=== PATIENT | female | born 1980 ===

== ENCOUNTER 2016-06-10 00:17 | Emergency (ER) | payer SELFPAY ==
[2016-06-10 00:18] VITALS: BMI 27.2
[2016-06-10 00:41] VITALS: BP 125/86; PULSE 76; RESP 20; TEMP 98; O2SAT 98
--- NOTE | 2016-06-10 01:13 | C.PDOC ---
History Of Present Illness 35 year old patient, with a past medical history of right sided neuropathy, presents to the ED complaining of intermittent pain from the right neck to the right shoulder and arm. Patient reports there is a tingling sensation. She is here with her son in the ED and decided to be evaluated as well. Patient denies any other complaints. Time Seen by Provider: 06/10/16 00:39 Chief Complaint (Nursing): Upper Extremity Problem/Injury History Per: Patient History/Exam Limitations: no limitations Onset/Duration Of Symptoms: Intermittent Episodes Current Symptoms Are (Timing): Still Present Quality: "Pain" Severity: Mild Pain Scale Rating Of: 3 Recent travel outside of the [place]: No Past Medical History Reviewed: Historical Data, Nursing Documentation, Vital Signs Vital Signs: Last Vital Signs Temp 98 F 06/10/16 00:32 Pulse 76 06/10/16 00:32 Resp 20 06/10/16 00:32 BP 125/86 06/10/16 00:32 Pulse Ox 98 06/10/16 03:07 - Medical History PMH: Anxiety, Back Problems, Depression, HTN Surgical History: Tonsillectomy, - [facility] Procedures BILAT TUBAL DIVISION NEC (01/13/14) LOW CERVICAL (01/13/14) Family History: States: Unknown Family Hx - Social History Hx Tobacco Use: No Hx Alcohol Use: No Hx Substance Use: No - Immunization History Hx Tetanus Toxoid Vaccination: No Hx Influenza Vaccination: No Hx Pneumococcal Vaccination: No Review Of Systems Except As Marked, All Systems Reviewed And Found Negative. Constitutional: Negative for: Fever Musculoskeletal: Positive for: Other (right neck to right upper extremity pain) Neurological: Positive for: Numbness. Negative for: Weakness Physical Exam - Physical Exam Appears: Non-toxic, No Acute Distress Skin: Warm, Dry Head: Atraumatic, Normacephalic Eye(s): bilateral: PERRL, EOMI Neck: Normal ROM, Paracervical Tenderness (right), Supple Chest: Symmetrical Cardiovascular: Rhythm Regular Respiratory: Normal Breath Sounds, No Rales, No Rhonchi, No Wheezing Extremity: Normal ROM, Tenderness (to the anterior aspect of the right shoulder) , Capillary Refill (<2 seconds), No Deformity, No Swelling, Other (normal pulses ; good strength; normal ROM of both upper extremities; normal motor) Neurological/Psych: Oriented x3, Normal Speech, Normal Cognition, Normal Motor, Normal Sensation Gait: Steady ED Course And Treatment O2 Sat by Pulse Oximetry: 98 (RA) Pulse Ox Interpretation: Normal Progress Note: Patient is resting comfortably, and is in no acute distress. Patient was instructed to follow up with physician/clinic in 1-2 days for further evaluation. Return if symptoms worsen. Disposition Counseled Patient/Family Regarding: Diagnosis, Need For Followup, Rx Given - Disposition Referrals: [facility] [Outside] Disposition: HOME/ ROUTINE Disposition Time: 01:12 Condition: STABLE Additional Instructions: Take meds as directed Follwo up with PMD in clinic Return to ER if worse Prescriptions: Ibuprofen [Motrin] 600 mg PO Q6H #30 tab Instructions: Peripheral Neuropathy (ED) - Clinical Impression Clinical Impression: Neuropathic pain - PA / LADLE HANDLER / Resident Statement MD/DO has reviewed & agrees with the documentation as recorded. - Scribe Statement The provider has reviewed the documentation as recorded by the Scribe Mary Mancuso All medical record entries made by the Scribe were at my direction and personally dictated by me. I have reviewed the chart and agree that the record accurately reflects my personal performance of the history, physical exam, medical decision making, and the department course for this patient. I have also personally directed, reviewed, and agree with the discharge instructions and disposition.
== END 2016-06-10 01:48 | disposition home or self-care (01) ==
LOC: C.ER 00:17
DX: G62.9 Polyneuropathy, unspecified (principal)

== ENCOUNTER 2016-11-12 20:51 | Emergency (ER) | payer SELFPAY ==
[2016-11-12 20:51] VITALS: BMI 27.2
[2016-11-12 21:05] VITALS: TEMP 98.5
--- NOTE | 2016-11-12 21:56 | C.PDOC ---
History Of Present Illness 36 y/o female, with PMHx of anxiety, presents to ED with c/o right sided headache since this morning. Patient describes headache as "sharp and electric" . Patient reports pain radiates down into her shoulder and that pain worsens with raising her arm. Patient also states pain radiates down right side of her back. She notes that the right side of her face became numb this afternoon, prompting visit. Denies fever, chills, nausea, vomiting, neck pain, visual changes, new weakness or numbness, or other associated symptoms. Time Seen by Provider: 11/12/16 21:09 Chief Complaint (Nursing): Headache History Per: Patient History/Exam Limitations: no limitations Onset/Duration Of Symptoms: Days Current Symptoms Are (Timing): Still Present Quality: Sharp, "Pain" Preceeding Symptoms: None Associated Symptoms: denies: Blurred Vision, Nausea, Vomiting, Extremity Weakness Recent travel outside of the [place]: No Past Medical History Reviewed: Historical Data, Nursing Documentation, Vital Signs Vital Signs: Last Vital Signs Temp 98.5 F 11/12/16 21:00 Pulse 94 H 11/12/16 21:00 Resp 16 11/12/16 21:00 BP 146/93 H 11/12/16 21:00 Pulse Ox 98 11/12/16 21:57 - Medical History PMH: Anxiety, Back Problems, Depression, HTN Surgical History: Tonsillectomy, - [facility] Procedures BILAT TUBAL DIVISION NEC (01/13/14) LOW CERVICAL (01/13/14) Family History: States: Unknown Family Hx - Social History Hx Tobacco Use: No Hx Alcohol Use: No Hx Substance Use: No - Immunization History Hx Tetanus Toxoid Vaccination: No Hx Influenza Vaccination: Yes Hx Pneumococcal Vaccination: No Review Of Systems Except As Marked, All Systems Reviewed And Found Negative. Constitutional: Negative for: Fever, Chills Cardiovascular: Negative for: Chest Pain Respiratory: Negative for: Shortness of Breath Neurological: Positive for: Headache. Negative for: Weakness, Numbness, Dizziness Physical Exam - Physical Exam Appears: Non-toxic, No Acute Distress Skin: Normal Color, Warm, Dry Head: Atraumatic, Normacephalic Eye(s): bilateral: Normal Inspection, PERRL, EOMI Oral Mucosa: Moist Neck: Normal ROM, No Midline Cervical Tenderness, No Paracervical Tenderness, Supple Chest: Symmetrical Cardiovascular: Rhythm Regular Respiratory: Normal Breath Sounds, No Rales, No Rhonchi, No Wheezing Gastrointestinal/Abdominal: Soft, No Tenderness, No Guarding, No Rebound Back: Normal Inspection Extremity: Normal ROM, Capillary Refill (< 2 sec.) Neurological/Psych: Oriented x3, Normal Speech, Normal Cognition, Normal Motor, Normal Sensation ED Course And Treatment - Laboratory Results Result Diagrams: 11/12/16 22:38 11/12/16 22:38 Lab Interpretation: No Acute Changes (mild elevation of LFTs) O2 Sat by Pulse Oximetry: 98 (RA) Pulse Ox Interpretation: Normal - CT Scan/US Head Other Rad Studies (CT/US): Read By Radiologist, Radiology Report Reviewed CT/US Interpretation: No acute intracranial hemorrhage or suspicious mass effect. (see report) Progress Note: CT Head and labs ordered. Review of prior records shows patient evaluated in this ER for similar complaints 2 years ago, with negative workup. Reevaluation Time: 23:38 Reassessment Condition: Improved (Patient is currently asymptomatic) Disposition Counseled Patient/Family Regarding: Studies Performed, Diagnosis, Need For Followup - Disposition Referrals: [facility] [Outside] Disposition: HOME/ ROUTINE Disposition Time: 23:39 Condition: IMPROVED Additional Instructions: Follow up with your doctor in the next several days. Discuss the possibility of having an MRI done as an outpatient. Instructions: Acute Headache (ED) Forms: [employer] (Urdu) - Clinical Impression Clinical Impression: Headache, Neuropathic pain - Scribe Statement The provider has reviewed the documentation as recorded by the Somibe SM Provider Attestation: All medical record entries made by the Walker were at my direction and personally dictated by me. I have reviewed the chart and agree that the record accurately reflects my personal performance of the history, physical exam, medical decision making, and the department course for this patient. I have also personally directed, reviewed, and agree with the discharge instructions and disposition.
[2016-11-12 22:12] LABS: RBC URINE 17 /hpf (0-3); URINE BILIRUBIN NEGATIVE (NEGATIVE); URINE BLOOD 3+ (NEGATIVE); URINE COLOR Yellow (YELLOW); URINE GLUCOSE (UA) NORMAL (Normal); URINE KETONE NEGATIVE (NEGATIVE); URINE LEUKOCYTE ESTERASE NEG Leu/uL (Negative); URINE PROTEIN NEGATIVE (NEGATIVE); URINE UROBILINOGEN NORMAL mg/dL (0.2-1.0); WBC URINE 2 /hpf (0-5)
--- NOTE | 2016-11-12 22:41 | CT ---
EXAM: CT Head Without Intravenous Contrast CLINICAL HISTORY: 36 years old, female; Pain; Headache; Headache not specified; Additional info: R/O bleed TECHNIQUE: Axial computed tomography images of the head/brain without intravenous contrast. All CT scans at this facility use one or more dose reduction techniques, viz.: automated exposure control; ma/kV adjustment per patient size (including targeted exams where dose is matched to indication; i.e. head); or iterative reconstruction technique. COMPARISON: MR - BRAIN WITHOUT CONTRAST 12/11/2014 1:15:23 PM FINDINGS: Brain: No acute intracranial hemorrhage. No significant white matter disease. No edema. Ventricles: No significant ventriculomegaly. Bones: No acute displaced fracture. Sinuses: Unremarkable as visualized. No acute sinusitis. Mastoid air cells: Unremarkable as visualized. No mastoid effusion. IMPRESSION: No acute intracranial hemorrhage, or suspicious mass effect.
[2016-11-12 22:42] LABS: BASO % 0.5 % (0.0-2.0); EOS # 0.1 K/uL (0.0-0.7); EOS % 0.8 % (0.0-4.0); HEMATOCRIT 38.7 % (34.0-47.0); LYMPH # 1.9 K/uL (1.0-4.3); LYMPH % 27.3 % (20.0-40.0); MEAN CELL VOLUME 88.6 fL (81.0-99.0); MEAN CORPUSCULAR HEMOGLOBIN 29.9 pg (27.0-31.0); MEAN CORPUSCULAR HGB CONC 33.8 g/dL (33.0-37.0); MEAN PLATELET VOLUME 9.3 fL (7.2-11.7); MONO # 0.6 K/uL (0.0-0.8); MONO % 8.1 % (0.0-10.0); RED CELL DISTRIBUTION WIDTH 13.5 % (11.5-14.5); WHITE BLOOD COUNT 6.9 K/uL (4.8-10.8)
[2016-11-12 22:48] LABS: CHLORIDE 105 mmol/L (98-107)
[2016-11-12 22:49] LABS: POTASSIUM 3.8 mmol/L (3.6-5.2); SODIUM 143 mmol/L (132-148)
[2016-11-12 22:51] LABS: ALB/GLOB RATIO 1.3 (1.0-2.1); ALKALINE PHOSPHATASE 137 U/L (38-126); ALT/SGPT 67 U/L (9-52); AST/SGOT 39 U/L (14-36); BILIRUBIN,TOTAL 0.4 mg/dL (0.2-1.3); CARBON DIOXIDE 27 mmol/L (22-30); GFR AFRICAN-AMERICAN > 60; TOTAL PROTEIN 7.4 g/dL (6.3-8.3)
[2016-11-12 22:52] LABS: BLOOD UREA NITROGEN 15 mg/dL (7-17); CALCIUM 8.8 mg/dl (8.6-10.4); GLUCOSE,RANDOM 81 mg/dL (65-105); MAGNESIUM 1.7 mg/dL (1.6-2.3)
[2016-11-13 00:16] VITALS: BP 128/81; PULSE 83; RESP 18; O2SAT 99
== END 2016-11-13 00:17 | disposition home or self-care (01) ==
LOC: C.ER 20:51
DX: R51 Headache (principal); M79.2 Neuralgia and neuritis, unspecified; I10 Essential (primary) hypertension; F41.9 Anxiety disorder, unspecified

== ENCOUNTER 2018-03-17 09:30 | Emergency (ER) | payer SELFPAY | END 2018-03-17 12:35 | disposition home or self-care (01) | LOC: C.ER 09:30 ==

== ENCOUNTER 2018-03-19 20:55 | Emergency (ER) | payer MEDICAID ==
[2018-03-19 20:55] VITALS: BMI 27.2
[2018-03-19 21:06] VITALS: BP 137/83; PULSE 66; RESP 20; TEMP 98; O2SAT 97
[2018-03-19 22:05] LABS: BASO % 0.3 % (0.0-2.0); EOS # 0.1 K/uL (0.0-0.7); LYMPH # 1.7 K/uL (1.0-4.3); MEAN CORPUSCULAR HEMOGLOBIN 29.3 pg (27.0-31.0); MEAN CORPUSCULAR HGB CONC 33.1 g/dL (33.0-37.0); MONO # 0.6 K/uL (0.0-0.8); MONO % 11.5 % (0.0-10.0); NEUT # 2.9 K/uL (1.8-7.0); NEUT % 55.2 % (50.0-75.0); RBC 4.79 Mil/uL (3.80-5.20); RED CELL DISTRIBUTION WIDTH 13.3 % (11.5-14.5); WHITE BLOOD COUNT 5.2 K/uL (4.8-10.8)
[2018-03-19 22:06] LABS: MEAN CELL VOLUME 88.4 fL (81.0-99.0)
[2018-03-19 22:23] LABS: ALB/GLOB RATIO 1.4 (1.0-2.1); ALBUMIN 4.6 g/dL (3.5-5.0); ALT/SGPT 110 U/L (9-52); AST/SGOT 96 U/L (14-36); BLOOD UREA NITROGEN 12 mg/dL (7-17); GFR NON-AFRICAN AMERICAN > 60
--- NOTE | 2018-03-19 23:27 | C.PDOC ---
History Of Present Illness 37 year old female presents to the ED c/o left upper back, left shoulder and left neck pain. Patient reports that today while rushing downstairs she became dizzy, like a spinning sensation, and fell 7/8 steps. Patient was seen in the ED on Thursday for evaluation of a syncopal episode, patient had lab work, EKG done all were normal with no gross abnormality. Patient denies syncope, headache, visual changes, LOC, neck pain, weakness, numbness, CP, SOB, nausea, vomit. Pt is no longer dizzy Time Seen by Provider: 03/19/18 21:11 Chief Complaint (Nursing): Back Pain History Per: Patient History/Exam Limitations: no limitations Onset/Duration Of Symptoms: Hrs Current Symptoms Are (Timing): Still Present Quality Of Discomfort: "Pain" Recent travel outside of the [place]: No Additional History Per: Patient Past Medical History Reviewed: Historical Data, Nursing Documentation, Vital Signs Vital Signs: Last Vital Signs Temp 98.0 F 03/19/18 20:58 Pulse 66 03/19/18 20:58 Resp 20 03/19/18 20:58 BP 137/83 03/19/18 20:58 Pulse Ox 97 03/19/18 20:58 - Medical History PMH: Anxiety, Back Problems, Depression, HTN Surgical History: Tonsillectomy, - [facility] Procedures BILAT TUBAL DIVISION NEC (01/13/14) LOW CERVICAL (01/13/14) Family History: States: Unknown Family Hx - Social History Hx Tobacco Use: No Hx Alcohol Use: No Hx Substance Use: No - Immunization History Hx Tetanus Toxoid Vaccination: No Hx Influenza Vaccination: Yes Hx Pneumococcal Vaccination: No Review Of Systems Constitutional: Negative for: Fever, Chills Eyes: Negative for: Vision Change Cardiovascular: Negative for: Chest Pain Respiratory: Negative for: Cough, Shortness of Breath Gastrointestinal: Negative for: Nausea, Vomiting, Diarrhea Musculoskeletal: Positive for: Neck Pain, Shoulder Pain Skin: Negative for: Rash Neurological: Positive for: Headache. Negative for: Weakness, Numbness, Dizziness Physical Exam - Physical Exam Appears: Non-toxic, No Acute Distress Skin: Normal Color, Warm, Dry Head: Atraumatic, Normacephalic Eye(s): bilateral: Normal Inspection, PERRL, EOMI Oral Mucosa: Moist Neck: Normal ROM, No Midline Cervical Tenderness, Paracervical Tenderness (left sided), Supple Chest: Symmetrical Cardiovascular: Rhythm Regular Respiratory: Normal Breath Sounds, No Rales, No Rhonchi, No Wheezing Gastrointestinal/Abdominal: Soft, No Tenderness, No Guarding, No Rebound Back: Other (left upper back tenderness) Extremity: Normal ROM (left wrist causes pain), Tenderness (left anterolateral shoulder, left wrist dorsal aspect), Capillary Refill (< 2 seconds), Swelling (left wrist dorsal aspect) Pulses: Left Radial: Normal, Right Radial: Normal Neurological/Psych: Oriented x3, Normal Speech, Normal Cognition Gait: Steady ED Course And Treatment - Laboratory Results Result Diagrams: 03/19/18 22:00 03/19/18 22:00 Lab Results: Total Bilirubin 0.5 mg/dL (0.2-1.3) 03/19/18 22:00 AST 96 U/L (14-36) H D 03/19/18 22:00 ALT 110 U/L (9-52) H D 03/19/18 22:00 Alkaline Phosphatase 134 U/L (38-126) H 03/19/18 22:00 Total Protein 7.9 g/dL (6.3-8.3) 03/19/18 22:00 Albumin 4.6 g/dL (3.5-5.0) 03/19/18 22:00 Globulin 3.3 gm/dL (2.2-3.9) 03/19/18 22:00 Albumin/Globulin Ratio 1.4 (1.0-2.1) 03/19/18 22:00 O2 Sat by Pulse Oximetry: 97 (ON RA) Pulse Ox Interpretation: Normal - Other Rad Left shoulder X-Ray X-Ray: Interpreted by Me, Viewed By Me Interpretation: No fracture or dislocation Left wrist X-Ray X-Ray: Interpreted by Me, Viewed By Me Interpretation: No fracture or dislocation Progress Note: Plan: - Labs. - Motrin 600 mg PO. - Left shoulder X-Ray. - Left wrist X-Ray. Lab results and imaging results were discussed with patient. Patient was advised to follow up with PMD for further evaluation Reassessment Condition: Improved Disposition Counseled Patient/Family Regarding: Diagnosis, Need For Followup, Rx Given - [facility] Disposition: HOME/ ROUTINE Disposition Time: 23:22 Condition: STABLE Additional Instructions: Please follow up with PMD Take medication as directed Return to ER if worse Prescriptions: Ibuprofen [Motrin] 600 mg PO Q6H #24 tab Instructions: Contusion (DC) Forms: [employer] (Irish) - Clinical Impression Clinical Impression: Contusion of arm, left, Status post fall - PA / POT BUILDER / Resident Statement MD/DO has reviewed & agrees with the documentation as recorded. - Scribe Statement The provider has reviewed the documentation as recorded by the Scribe Christo Luis All medical record entries made by the Scribtien were at my direction and personally dictated by me. I have reviewed the chart and agree that the record accurately reflects my personal performance of the history, physical exam, medical decision making, and the department course for this patient. I have also personally directed, reviewed, and agree with the discharge instructions and disposition.
--- NOTE | 2018-03-20 09:22 | RAD ---
Left wrist four views HISTORY: Fall. Comparison: None available. Findings: No evidence of acute displaced fracture or dislocation. Mild narrowing of the radial carpal joint space. Mild prominence of the scapholunate interval measuring 2.4 millimeters. Prominent probable subchondral cyst and or intraosseous ganglion within the mid capitate bone measuring 5.7 millimeters. Impression: No evidence of acute displaced fracture or dislocation. Mild narrowing of the radial carpal joint space. Mild prominence of the scapholunate interval measuring 2.4 millimeters. Prominent probable subchondral cyst and or intraosseous ganglion within the mid capitate bone measuring 5.7 millimeters. If pain persists, consider correlation with MRI. Please note this case was placed in the PA review folder.
--- NOTE | 2018-03-20 09:23 | RAD ---
Left shoulder three views HISTORY: Fall. Comparison: None available. Findings: No evidence for acute displaced fracture or dislocation. Humeral head is located and in good position. Acromioclavicular joint space is preserved. Question soft tissue calcification within the lateral soft tissues at the level of the proximal humerus. Impression: Negative acute. If pain persists, consider MRI.
== END 2018-03-19 23:33 | disposition home or self-care (01) ==
LOC: C.ER 20:55
DX: S40.022A Contusion of left upper arm, initial encounter (principal); W10.9XXA Fall (on) (from) unspecified stairs and steps, initial encounter; I10 Essential (primary) hypertension